=== PATIENT | male | born 1995 | race Hispanic/Latino ===

== ENCOUNTER 2019-12-11 22:08 | Emergency (ER) | payer OTHER, SELFPAY ==
[2019-12-11 22:12] VITALS: BP 140/92; PULSE 107; RESP 22; TEMP 37.1; O2SAT 99
[2019-12-11 22:17] VITALS: PULSE 98; RESP 22; O2SAT 100
--- NOTE | 2019-12-11 22:19 | ED.CHESTPAIN ---
HPI - Chest Pain General Chief Complaint: Arrhythmia/Palpitations Stated Complaint: CHEST PRESSURE HEART WEAKNESS Time Seen by Provider: 12/11/19 22:09 Source: patient and family Mode of arrival: Ambulatory Limitations: no limitations History of Present Illness HPI narrative: 24M non smoker with history of asthma presents with his mother and the chief complaint of palpiations, a squeezing sensation in his chest and some shortness of breath since . He denies runny nose, sore throat, coughing, fever or chills. He denies any dietary change or new medications. Denies any recent travel or exposure to persons known to have coronavirus. He states that sometimes the squeezing in his chest feels better when he lays flat but otherwise there is no obvious provocation or palliation to his symptoms. He states the symptoms are in his anterior chest and do not radiate. He tried using his bronchodilators at home which did not do much to help his symptoms. MD complaint: other Onset (ago): day(s) Duration: constant Pain location: left chest Severity: moderate Quality: tightness Pain radiation: none Relieving factors: other Associated symptoms: palpitations Treatments prior to arrival chest pain: other Related Data Home Medications Medication Instructions Recorded Confirmed Fexofenadine Hydrochloride 180 mg PO BID PRN #0 08/24/11 (CADEN~) Previous Rx's Medication Instructions Recorded albuterol sulfate [Ventolin HFA] 0 INH SEE INSTRUCTIONS #1 inh 05/03/12 Allergies Allergy/AdvReac Type Severity Reaction Status Date / Time SULFA AdvReac Mild MOM Uncoded 06/16/17 11:54 ALLERGIC-WANTS IT NOTED ON CHART Review of Systems Constitutional Constitutional: Denies chills, Denies fatigue, Denies fever(s), Denies frequent falls, Denies lethargy and Denies weakness Eyes Eyes: Denies change in vision, Denies eye discharge, Denies irritation and Denies loss of vision ENT Ears, Nose, Mouth, and Throat: Denies change in voice, Denies dizziness, Denies neck pain, Denies sore throat and Denies throat swelling Cardiovascular Cardiovascular: Reports chest pain, Reports rapid heart rate, Denies irregular heart rhythm, Denies lightheadedness, Denies palpitations, Reports dyspnea, Denies dyspnea on exertion and Denies orthopnea Respiratory Respiratory: Denies cough, Reports dyspnea, Denies dyspnea on exertion and Denies wheezing Gastrointestinal Gastrointestinal: Denies abdominal pain, Denies change in bowel habits, Denies diarrhea, Denies nausea and Denies vomiting Musculoskeletal Musculoskeletal: Denies neck pain and Denies numbness Integumentary/Breasts Skin/Breast: Denies pruritus, Denies erythema, Denies rash and Denies wounds Neurologic Neurologic: Denies behavioral changes, Denies confusion, Denies dizziness, Denies frequent falls, Denies loss of vision, Denies numbness and Denies weakness Psychiatric Psychiatric: Denies anxiety, Denies behavioral changes, Denies confusion, Denies depression, Denies homicidal ideation and Denies suicidal ideation Endocrine Endocrine: Denies fatigue, Denies flushing and Denies palpitations Hematologic/Lymphatic Hematologic/Lymphatic: Denies easy bruising Allergic/Immunologic Allergic/Immunologic: Denies urticaria, Denies throat swelling and Denies wheezing Patient History Social History Smoking Status: Never smoker Smoking Status: Never smoker alcohol intake frequency: 0-2 drinks per day Substance Use Type: does not use Exam Narrative Exam Narrative: GENERAL: [24] year old patient appears stated age. Well-nourished, well-developed patient, in mild distress. HEAD: Atraumatic. Normocephalic. EYES: Pupils equal round and reactive. Extraocular motions intact. No scleral icterus. No injection or drainage. ENT: Nose without bleeding, purulent drainage. Throat without erythema, tonsillar hypertrophy or exudate. Airway patent. NECK: Trachea midline. Non tender CARDIOVASCULAR: Tachycardic but right rhythm without murmurs, gallops, or rubs. RESPIRATORY: Clear to auscultation. Breath sounds equal bilaterally. No wheezes, rales, or rhonchi. GASTROINTESTINAL: Abdomen soft, non-tender, nondistended. EXTREMITIES: No edema or joint tenderness. BACK: Nontender without deformity or crepitance. No flank tenderness. NEURO: AOx3. SKIN: No rash or erythema of visible areas Initial Vital Signs Initial Vital Signs: Vital Signs Temperature 98.7 F 12/11/19 22:12 Pulse Rate 107 H 12/11/19 22:12 Respiratory Rate 22 12/11/19 22:12 Blood Pressure 140/92 H 12/11/19 22:12 Pulse Oximetry 99 12/11/19 22:12 Course Orders Ordered: ED Orders 10/05/20 22:11 C-Reactive Protein Quant Stat Complete Blood Count AUTO DIFF Stat Comprehensive Metabolic Panel Stat D Dimer Stat Erythrocyte Sedimentation Rate Stat Lipase Stat NT-proBNP (BNP-Adult 18+) Stat Troponin & CK Cardiac Panel Stat 12/11/19 22:19 EKG-12 Lead Stat 12/11/19 22:20 XR chest 2V Stat Sodium Chloride (Normal Saline 0.9%) 1,000 mls @ 150 mls/hr IV CONT DEBORA Last Admin: 12/11/19 22:23 Dose: 150 mls/hr Documented by: RICHARD Reevaluation(s) Reevaluation #1: Patient is feeling much better after receiving some fluids and reassurance. Heart rate down to the 80s and patient is currently asymptomatic. Vital Signs Vital signs: Vital Signs - 8 hr 12/11/19 22:12 12/11/19 22:17 12/11/19 22:30 Temperature 98.7 F Pulse Rate 107 H 98 H 86 Respiratory Rate 22 22 Blood Pressure 140/92 H Pulse Oximetry 99 100 12/11/19 23:00 Temperature Pulse Rate 78 Respiratory Rate 18 Blood Pressure Pulse Oximetry 100 MDM - Chest Pain Lab Data Result diagrams: 12/11/19 22:11 12/11/19 22:11 Labs: Lab Results 12/11/19 12/11/19 12/11/19 Range/Units 22:11 22:11 22:11 WBC 7.4 (4.5-11.0) X10^3/uL RBC 5.06 (4.5-5.9) X10^6/uL Hgb 16.5 (13.5-17.5) g/dL Hct 48.3 (41-53) % MCV 95.5 (80-100) fL MCH 32.6 (26-34) PG MCHC 34.2 (30-36) % RDW 12.7 (11.6-14.8) % Plt Count 315 (150-400) X10^3/uL Neut % (Auto) 47.7 L (50-75) % Lymph % (Auto) 38.5 (25-40) % [place] % (Auto) 7.2 (3-14) % Eos % (Auto) 4.9 H (2-4) % Baso % (Auto) 1.7 (0-2) % Neut # (Auto) 3500 (1527-4645) /uL Lymph # (Auto) 2900 (7541-5162) /uL [place] # (Auto) 500 (0-900) /uL Eos # (Auto) 400 (0-450) /uL Baso # (Auto) 100 (0-100) /uL ESR 1 (0-15) MM/HR D-Dimer < 200 (<230) ng/mL Sodium 140 (137-145) mmol/L Potassium 3.7 (3.4-5.1) mmol/L Chloride 103 (98-107) mmol/L Carbon Dioxide 29 (22-32) mmol/L BUN 12 (9-20) mg/dL Creatinine 0.77 (0.66-1.25) mg/dL Estimated GFR > 60.0 (>60) mL/min BUN/Creatinine Ratio 15.6 (6-22) Glucose 90 (70-100) mg/dL Calcium 9.4 (8.4-10.2) mg/dL Total Bilirubin 1.1 (0.2-1.3) mg/dL AST 31 (17-59) IU/L ALT 23 (<50) IU/L Alkaline Phosphatase 60 (38-126) U/L Total Creatine Kinase 67 (55-170) U/L CK-MB (CK-2) TNP CK-MB (CK-2) Rel Index TNP Troponin I < 0.012 (0.01-0.034) ng/mL C-Reactive Protein < 0.5 (<1.0) mg/dL NT-Pro-B Natriuret Pep 24 (<125) pg/mL Total Protein 8.6 H (6.3-8.2) g/dL Albumin 5.0 (3.5-5.0) g/dL Globulin 3.6 (1.7-4.1) g/dL Albumin/Globulin Ratio 1.4 (1.0-2.8) Lipase 163 (23-300) U/L Imaging Data Chest x-ray: Attestation: I personally reviewed and interpreted this imaging study as follows: My Impression: NAP ECG Data Attestation: I personally reviewed and interpreted this ECG as follows: Prior ECG tracings: available for review Interpretation: EKG is normal sinus rhythm rate [ 95] and free of any signs of ischemia or ectopy. No ST segmental elevation or depression. No T wave inversions MDM Narrative Medical decision making narrative: Multiple causes of chest pain considered including PR, PE, pneumothorax, pneumonia, aortic dissection, and pleurisy. Patient reports no radiation, no diaphoresis, no provocation with exertion, and no vomiting Patient's symptoms improved over duration of stay with above-stated therapies. Findings and discharge diagnosis discussed with patient/family followed by verbalization of understanding Return precautions discussed with patient/family whom verbalize understanding. Discharge Plan Departure Patient Disposition: Home Clinical Impression: Chest pressure, Heart palpitations Discharge Date/Time: 12/11/19 23:19 Instructions: DI for Atypical Chest Pain, DI for Palpitations Activity Restrictions/Additional Instructions: *You have been diagnosed with [chest pressure and palpitations. Your physical exam, lab work, EKG and chest x-ray are very reassuring] *What to do: *Follow up with your primary care provideron as planned. Let them know you were seen in the Emergency Department and that we ask that you be seen in follow up *Return to ER if you should have any new, worsening or concerning symptoms Prescriptions: No Action Fexofenadine Hydrochloride (CADEN~) 180 mg PO BID PRNQty: 0 RF: 0 albuterol sulfate [Ventolin HFA] 90 MCG/PUFF HFA aerosol inhaler 0 INH SEE INSTRUCTIONS Qty: 1 RF: 12 Referrals: Tony Phillips MD [Physician] - Tito Jones MD [Primary Care Provider] -
--- NOTE | 2019-12-11 22:20 | DI.RAD.S_ITS ---
PROCEDURE: XR CHEST 2V INDICATIONS: chest pain, Shortness of breath TECHNIQUE: 2 views of the chest were acquired. COMPARISON: None. FINDINGS: Surgical changes and devices: None. Lungs and pleura: Lungs are clear. No pleural effusions or pneumothorax. Mediastinum: Mediastinal contours are normal. Heart size is normal. Bones and chest wall: No suspicious bony abnormalities. Soft tissues appear unremarkable. IMPRESSION: No acute cardiopulmonary disease process. Dictated by: Anayeli Jean-Baptiste MD, PhD on 12/12/2019 at 9:15 Approved by: Anayeli Jean-Baptiste MD, PhD on 12/12/2019 at 9:15
[2019-12-11] MEDS: SODIUM CHLORIDE 0.9% 1,000 ML 150 ML IV (22:23)
[2019-12-11 22:30] VITALS: PULSE 86
[2019-12-11 22:34] LABS: Add Manual Diff / Slide Review NO; Basophils Absolute Auto 100 /uL (0-100); Basophils Percent Auto 1.7 % (0-2); Eosinophils Absolute Auto 400 /uL (0-450); Eosinophils Percent Auto 4.9 % (2-4); Hematocrit 48.3 % (41-53); Hemoglobin 16.5 g/dL (13.5-17.5); Lymphocytes Absolute Auto 2900 /uL (1100-4500); Lymphocytes Percent Auto 38.5 % (25-40); Mean Corpuscular HGB Conc 34.2 % (30-36); Mean Corpuscular Hemoglobin 32.6 PG (26-34); Mean Corpuscular Volume 95.5 fL (80-100); Monocytes Absolute Auto 500 /uL (0-900); Monocytes Percent Auto 7.2 % (3-14); Neutrophils Absolute Auto 3500 /uL (1500-7000); Neutrophils Percent Auto 47.7 % (50-75); Platelet Count 315 X10^3/uL (150-400); Red Blood Cell Count 5.06 X10^6/uL (4.5-5.9); Red Cell Distribution Width 12.7 % (11.6-14.8); White Blood Cell Count 7.4 X10^3/uL (4.5-11.0)
[2019-12-11 22:39] LABS: Alanine Aminotransferase 23 IU/L (<50); Albumin Globulin Ratio 1.4 (1.0-2.8); Alkaline Phosphatase 60 U/L (38-126); Aspartate Aminotransferase 31 IU/L (17-59); BUN Creatinine Ratio 15.6 (6-22); Bilirubin Total 1.1 mg/dL (0.2-1.3); Blood Urea Nitrogen 12 mg/dL (9-20); Calcium 9.4 mg/dL (8.4-10.2); Carbon Dioxide 29 mmol/L (22-32); Chloride 103 mmol/L (98-107); Creatine Kinase 67 U/L (55-170); Estimated Glomerular Filt Rate > 60.0 mL/min (>60); Globulin 3.6 g/dL (1.7-4.1); Glucose 90 mg/dL (70-100); Lipase 163 U/L (23-300); Potassium 3.7 mmol/L (3.4-5.1); Sodium 140 mmol/L (137-145); Total Protein 8.6 g/dL (6.3-8.2)
[2019-12-11 22:47] LABS: D Dimer < 200 ng/mL (<230)
[2019-12-11 22:51] LABS: HEMOLYSIS 35 (0-50); NT-proBNP (BNP-Adult 18+) 24 pg/mL (<125); Troponin I < 0.012 ng/mL (0.01-0.034)
[2019-12-11 22:52] LABS: C-Reactive Protein Quant < 0.5 mg/dL (<1.0)
[2019-12-11 22:56] LABS: Erythrocyte Sedimentation Rate 1 MM/HR (0-15)
[2019-12-11 23:00] VITALS: PULSE 78; RESP 18; O2SAT 100
== END 2019-12-11 23:19 | disposition home or self-care (01) ==
PROVIDERS: Emergency Provider Emergency Medicine; Family Provider Pediatrics; PCP Pediatrics
DX: R07.89 Other chest pain (principal); R00.2 Palpitations
CPT/HCPCS: 36415; 71046; 80053; 82550; 83690; 83880; 84484; 85025; 85379; 85651; 86140; 93005; 96360; 99284

== ENCOUNTER → 2019-12-25 08:57 | Outpatient (CLI) | payer OTHER, SELFPAY ==
[2019-12-26 06:49] LABS: COVID19 Sendout Not Detected (Not Detect)
== END ==
PROVIDERS: Family Provider Pediatrics; PCP Family Medicine; Visit Provider Physician Assistant
DX: Z01.812 Encounter for preprocedural laboratory examination (principal)
CPT/HCPCS: 87635

== ENCOUNTER → 2019-12-28 08:30 | Outpatient (CLI) | payer OTHER, SELFPAY ==
--- NOTE | 2019-12-28 09:14 | PM.TREADMILL ---
Cardiac Stress Test Report Referral & Results Date Patient Seen: 12/28/19 Time Patient Seen: 09:00 Requesting provider: Tony Phillips Indication: Chest discomfort, presyncope Rest ECG: Sinus tachycardia Procedure Note: Today following both written and verbal informed consent, the patient was exercised according to a standard Storm protocol. The patient exercised for a total of 11 minutes 42 seconds achieving a maximum heart rate of 195. Patient's maximum systolic blood pressure was 188. This was an estimated 12.8 METs. Exaggerated hemodynamic response to exercise. No EKG changes during exercise. ARCENIO +20% on active scale. No signs or symptoms of angina. Presenting presyncopal symptoms were not produced on exercise. Impression: Low probability for ischemia. No inducible arrhythmia. Zaman treadmill score of 12 is correlated with 97% survival at 5 years from cardiovascular causes of mortality. Please note: Actual ECG tracings can be found in the PACS system.
== END ==
LOC: DI 08:34
PROVIDERS: Family Provider Pediatrics; PCP Family Medicine; Referring Provider Family Medicine; Visit Provider Family Medicine
DX: R07.89 Other chest pain (principal); R00.2 Palpitations
CPT/HCPCS: 93016; 93017; 93018